=== PATIENT | male | born 2000 | race Caucasian/White ===

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

== ENCOUNTER 2018-01-15 13:00 | Emergency (ER) | payer SELFPAY, OTHER ==
[2018-01-15] MEDS: LIDOCAINE W/EPINEPHRINE 1% 20ML VIAL SC (15:15)
== END 2018-01-15 16:13 | disposition home or self-care (01) ==
LOC: M ED 13:00
DX: S81.812A Laceration without foreign body, left lower leg, initial encounter (principal); S80.12XA Contusion of left lower leg, initial encounter; W21.89XA Striking against or struck by other sports equipment, initial encounter; Y92.830 Public park as the place of occurrence of the external cause; Y93.65 Activity, lacrosse and field hockey; Z91.013 Allergy to seafood
CPT/HCPCS: 73564

== ENCOUNTER → 2019-03-27 | Outpatient (CLI) | payer OTHER ==
[~2019-03-27] MED LIST: VENTAER INH
[2019-03-27 17:55] LABS: BASO # 0.1 10^3/uL (0.0-0.2); BASO % 0.7 % (0.0-1.0); EOS # 0.1 10^3/uL (0.0-0.5); EOS % 2.1 % (0.0-3.0); HEMATOCRIT 43.1 % (42.0-52.0); HEMOGLOBIN 14.2 g/dl (13.5-17.5); LYMPH # 2.2 10^3/uL (1.5-5.0); LYMPH % 32.1 % (24.0-44.0); MEAN CORPUSCULAR HEMOGLOBIN 27.6 pg (27.0-33.0); MEAN CORPUSCULAR HGB CONC 32.9 g/dl (32.0-36.5); MEAN CORPUSCULAR VOLUME 83.9 fl (80.0-96.0); MONO # 0.6 10^3/uL (0.0-0.8); MONO % 9.2 % (0.0-5.0); NEUTROPHILS # 3.8 10^3/uL (1.5-8.5); NEUTROPHILS % 55.6 % (36.0-66.0); PLATELET COUNT, AUTOMATED 323 10^3/uL (150-450); RED BLOOD COUNT 5.14 10^6/uL (4.30-6.10); WHITE BLOOD COUNT 6.8 10^3/uL (4.0-10.0)
[2019-03-27 18:21] LABS: BLOOD UREA NITROGEN 17 MG/DL (7-18); CALCIUM LEVEL 9.8 MG/DL (8.5-10.1); CARBON DIOXIDE LEVEL 28 MEQ/L (21-32); CHLORIDE LEVEL 105 MEQ/L (98-107); CHOLESTEROL LEVEL 204 MG/DL (<200); CHOLESTEROL RISK RATIO 4.636 (<5); CREATININE FOR GFR 1.06 MG/DL (0.70-1.30); FREE THYROXINE INDEX 3.9 % (1.4-3.8); GLUCOSE, FASTING 84 MG/DL (70-100); HDL CHOLESTEROL 44 MG/DL (>40); LDL CHOLESTEROL 145 MG/DL (<100); NON-HDL-C 160 MG/DL; SODIUM LEVEL 141 MEQ/L (136-145); T UPTAKE 33 % (33-40); THYROXINE (T4) 11.9 UG/DL (6.0-11.6); TRIGLYCERIDES LEVEL 75 MG/DL (<150)
== END ==
LOC: M WUC 12:24
PROVIDERS: ATTEND Physician Assistant Medical
DX: Z13.29 Encounter for screening for other suspected endocrine disorder (principal); E66.09 Other obesity due to excess calories

== ENCOUNTER → 2019-09-11 | Outpatient (CLI) | payer OTHER ==
[2019-09-11 17:43] LABS: FREE THYROXINE INDEX 4.1 % (1.4-3.8); THYROID STIMULATING HORMONE 1.82 uIU/ML (0.358-3.740)
== END ==
LOC: M WUC 12:47
PROVIDERS: ATTEND Physician Assistant Medical
DX: Z13.29 Encounter for screening for other suspected endocrine disorder (principal)

== ENCOUNTER → 2021-02-17 | Outpatient (CLI) | payer OTHER, SELFPAY ==
--- NOTE | 2021-02-17 10:03 | PFTRPT ---
Site: [facility], [address] [place] [address], [address] ID: [id number] Name: KEAGAN MAY Visit Date: 02/17/2021 Second ID: [id number] Referring Doctor: LUKE Mack, Shabnam Mendez Reviewing Doctor: Jason Taylor MD Land Management Supervisor: Shawna ADAIR, RICCARDO Age: 20 : 2000 Sex: Male Race: Height: 69.00 Inches Weight: 165.00 Lbs BSA: 1.90 Order IDs: [id number] Requested Test(s): <RESP-PFT.PFT B/A> Diagnosis: R06.00 test meet the ATS standards for acceptability and repeatability. Pt was given four puffs of albuterol for post bronchodilator. Review Status: Not Reviewed Pre-Bronch Post-Bronch Pred Actual %Pred Actual %Chng SPIROMETRY FVC (L) 5.41 5.33 98 5.30 FEV1 (L) 4.50 4.50 100 4.57 1 FEV1/FVC (%) 83 84 101 86 2 FEF 25% (L/sec) 8.15 8.72 106 7.96 -8 FEF 50% (L/sec) 5.67 5.07 89 6.50 28 FEF 75% (L/sec) 2.23 2.36 105 2.48 4 FEF 25-75% (L/sec) 4.74 4.66 98 4.97 6 FEF Max (L/sec) 9.93 8.90 89 8.25 -7 FIVC (L) 5.21 5.21 FIF 50% (L/sec) 5.69 7.46 131 9.28 24 FIF Max (L/sec) 7.46 9.29 24 MVV (L/min) 184 195 105 Expiratory Time (sec) 6.59 6.43 -2 Back Extrap Vol (L) 0.17 0.21 18 Time To FEFmax (sec) 0.119 0.174 46 LUNG VOLUMES SVC (L) 5.25 5.30 100 IC (L) 3.48 3.13 90 ERV (L) 1.77 2.16 122 TGV (L) 3.19 3.59 112 RV (Pleth) (L) 1.42 1.43 100 TLC (Pleth) (L) 6.67 6.73 100 RV/TLC (Pleth) (%) 21 21 101 DIFFUSION DLCOunc (ml/min/mmHg) 36.54 34.81 95 DLCOcor (ml/min/mmHg) 36.54 36.45 99 DL/VA (ml/min/mmHg/L) 5.48 5.65 103 VA (L) 6.67 6.45 96 BHT (sec) 9.94 IVC (L) 5.02 TLC (SB) (L) 6.60 AIRWAYS RESISTANCE Raw (cmH2O/L/s) 1.45 0.55 38 Gaw (L/s/cmH2O) 1.03 1.84 178 sRaw (cmH2O*s) 4.76 2.10 44 sGaw (1/cmH2O*s) 0.20 0.48 241 BLOOD GASES Hgb (gm/dL) 13.1
--- NOTE | 2021-02-17 12:02 | REP ---
INDICATION: DYSPNEA-HAS PFT APPT FIRST. COMPARISON: 04/27/2013 TECHNIQUE: PA and lateral FINDINGS: The superior mediastinal structures are midline. The cardiac silhouette is unremarkable in size, shape, and position. The diaphragmatic surfaces of the lungs are regular, and the costophrenic angles are clear. The pulmonary haywood are clear. The imaged osseous structures are intact. IMPRESSION: There is no acute cardiopulmonary disease. <Electronically signed by Wang Meadows > 02/17/21 [id number]
== END ==
LOC: M CARPUL 09:15
PROVIDERS: ATTEND Physician Assistant
DX: R06.00 Dyspnea, unspecified (principal)

== ENCOUNTER → 2022-10-01 | Outpatient (CLI) | payer OTHER ==
[2022-10-01 12:52] LABS: BASO # 0.1 10^3/uL (0.0-0.2); BASO % 0.8 % (0.0-1.0); EOS # 0.3 10^3/uL (0.0-0.5); EOS % 5.2 % (0.0-3.0); HEMATOCRIT 43.2 % (42.0-52.0); HEMOGLOBIN 14.4 g/dl (13.5-17.5); LYMPH % 33.8 % (24.0-44.0); MEAN CORPUSCULAR HEMOGLOBIN 28.6 pg (27.0-33.0); MEAN CORPUSCULAR HGB CONC 33.3 g/dl (32.0-36.5); MEAN CORPUSCULAR VOLUME 85.7 fl (80.0-96.0); MONO # 0.6 10^3/uL (0.0-0.8); MONO % 9.8 % (2.0-8.0); NEUTROPHILS % 50.1 % (36.0-66.0); PLATELET COUNT, AUTOMATED 273 10^3/uL (150-450); RED BLOOD COUNT 5.04 10^6/uL (4.30-6.10)
[2022-10-01 13:18] LABS: ALBUMIN 4.2 G/DL (3.2-5.2); ALKALINE PHOSPHATASE 50 U/L (46-116); ALT/SGPT 15 U/L (7.0-40); AST/SGOT 9 U/L (<34); BILIRUBIN,TOTAL 1.4 MG/DL (0.3-1.2); BLOOD UREA NITROGEN 22 MG/DL (9-23); CALCIUM LEVEL 9.1 MG/DL (8.5-10.1); CARBON DIOXIDE LEVEL 28 MMOL/L (20-31); CHLORIDE LEVEL 107 MMOL/L (98-107); CHOLESTEROL LEVEL 186 MG/DL (<200); CHOLESTEROL RISK RATIO 3.03 (<5); CREATININE FOR GFR 1.07 MG/DL (0.70-1.30); GLOMERULAR FILTRATION RATE > 60.0 (>60); GLUCOSE, FASTING 91 MG/DL (60-100); HDL CHOLESTEROL 61.3 MG/DL (>40); LDL CHOLESTEROL 112.5 MG/DL (<100); NON-HDL-C 124.7 MG/DL; POTASSIUM SERUM 4.5 MMOL/L (3.5-5.1); SODIUM LEVEL 140 MMOL/L (136-145); TOTAL PROTEIN 6.9 G/DL (5.7-8.2); TRIGLYCERIDES LEVEL 61 MG/DL (<150)
[2022-10-01 13:19] LABS: HEMOGLOBIN A1c 5.1 % (4.0-6.0)
[2022-10-01 13:20] LABS: FREE T4 1.32 NG/DL (0.89-1.76); THYROID STIMULATING HORMONE 0.971 uIU/ML (0.55-4.78)
== END ==
LOC: M WUC 09:57
PROVIDERS: ATTEND Registered Nurse
DX: G40.89 Other seizures (principal)